=== PATIENT | female | born 2005 | race Caucasian/White ===

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

== ENCOUNTER 2023-01-13 00:11 | Emergency (ER) | payer OTHER ==
[2023-01-13 00:25] VITALS: BP 114/70
[2023-01-13] MEDS ORDERED: DEXAMETHASONE 10 MG/ML VIAL PO STA (00:37)
[2023-01-13] MEDS ORDERED: CHERRY SYRUP 10 ML UDC PO ONE (00:37)
--- NOTE | 2023-01-13 00:45 | ED Physician Documentation ---
PD HPI SKIN - Stated complaint Stated Complaint: FEMALE - Chief complaint Chief Complaint: General - History obtained from History obtained from: Patient - Additional information Additional information: 17-year-old female presents by private vehicle from home for vaginal irritation and itching for the last 4 to 5 days. Symptoms began after patient used a scented menstrual pad. She states she is allergic to perfumes. She has been applying Vagisil to the irritated area, but her labia have become progressively more swollen, itchy, and have a burning sensation. Tonight she could not walk without pain and decided to present for evaluation. Review of Systems Constitutional: denies: Fever, Chills : denies: Dysuria, Frequency, Hesitancy, Vaginal bleeding, Irregular menses, Missed period, Now EGA Skin: reports: Rash, Other (itching, burning). 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 : None HEENT: None Psych: None Musculoskeletal: None Derm: None - Past Surgical History Past Surgical History: No - Present Medications Home Medications: Ambulatory Orders Medication Instructions Recorded Confirmed Cetirizine HCl/Pseudoephedrine 1 each PO BID PRN #30 tab.er.12h 11/09/18 01/13/23 [Zyrtec-D Tablet] Betamethasone Dipropionate 15 gm TP BID #300 gm 01/13/23 [Betamethasone Diprop Augmented] - Allergies Allergies/Adverse Reactions: Allergies Allergy/AdvReac Type Severity Reaction Status Date / Time peanut Allergy Hives Verified 01/13/23 00:22 - Social History Does the pt smoke?: No Smoking Status: Never smoker Does the pt drink ETOH?: No Does the pt have substance abuse?: No - Immunizations Immunizations are current?: Yes Immunizations: TDAP current <10years - POLST Patient has POLST: No PD ED PE NORMAL - Vitals Vital signs reviewed: Yes - General General: Alert and oriented X 3, No acute distress, Well developed/nourished - Neck Neck: Supple, no meningeal sign - Cardiac Cardiac: RRR, Strong equal pulses - Respiratory Respiratory: No respiratory distress, Clear bilaterally - Abdomen Abdomen: Soft, Non tender, Non distended - Female Female : Laminating Press Operator present, Other (labia minora swollen, erythematous. No rash, no abscess, no vaginal discharge) - Derm Derm: Warm and dry - Neuro Neuro: Alert and oriented X 3, pipeline executive 2-12 intact, No motor deficit, Normal speech Results - Vitals Vitals: Vital Signs - 24 hr 01/13/23 00:16 Temperature 36.9 C Heart Rate 80 Respiratory 18 Rate Blood Pressure 114/70 O2 Saturation 97 Oxygen O2 Source Room air PD Medical Decision Making - ED course Complexity details: considered differential, d/w patient, d/w family ED course: Patient presenting for itching and burning sensation in her vaginal region. She states that she is allergic to perfumes and fragrances. She brought the box of Vagisil that she has been using, and review the active ingredients shows that there is "fragrance" listed as one of the ingredients to the Vagisil. Patient likely has been unintentionally worsening her symptoms by using a product with fragrances in them. Patient was counseled to stop using the previous cream and instead will prescribe a steroid cream. She was given a dose of steroids in the emergency department and discharged on a topical steroid cream. Patient requested a note for work, which was provided. Departure - Departure Disposition: 01 Home, Self Care Clinical Impression: Allergic vaginitis Condition: Stable Instructions: ED Dermatitis Non Specific Rash Prescriptions: Betamethasone Dipropionate [Betamethasone Diprop Augmented] 15 gm TP BID #300 gm Forms: PCP List Discharge Date/Time: 01/13/23 00:54
== END 2023-01-13 00:54 | disposition home or self-care (01) ==
LOC: ED 00:11
DX: N76.0 Acute vaginitis (principal)
CPT/HCPCS: 99282; 99283; A9270